=== PATIENT | male | born 1975 | race Caucasian/White ===

== ENCOUNTER 2017-12-05 09:04 | Inpatient (IN) | payer OTHER ==
[2017-12-05] MEDS ORDERED: MORPHINE 4 MG/ML SYR ONE (12:01)
[2017-12-05] MEDS ORDERED: ONDANSETRON 4 MG/2 ML VIAL ONE ×2 (12:02→20:25)
[2017-12-05] MEDS ORDERED: CEFOXITIN/SWI 1gm 1 GM/10 ML SYR ONE (12:02)
[2017-12-05 12:08] LABS: Absolute Lymphocytes (CBC) 1.9 K/uL (0.7-4.9); Absolute Monocytes 0.8 K/uL (0.1-1.3); Absolute Neutrophil 8.5 K/uL (1.8-8.0); Basophils % 0.3 % (0-1.3); Eosinophils % 3.8 % (0-4.4); Hematocrit 39.7 % (39.6-49.0); Lymphocytes % 16.3 % (15.3-44.8); MCH 28.4 pg (27.0-35.0); MCV 82.2 fL (80-100); MPV 8.7 fL (7.6-11.3); Monocytes % 7.1 % (3.3-12.3); RBC Red Blood Cell Count 4.83 M/uL (4.33-5.43)
[2017-12-05 12:17] LABS: Potassium 3.9 mmol/L (3.5-5.1)
--- NOTE | 2017-12-05 12:26 | ER ---
Nurse's Notes [facility] Name: Philippe Baird Age: 42 yrs Sex: Male : 1975 Arrival Date: 12/05/2017 Time: 09:06 Bed 20 Private MD: Diagnosis: Rectal abscess Presentation: 12/05 09:38 Presenting complaint: Patient states: perirectal abscess x 5 days. Pt reports a history ss of multiple abscesses in the same location and has had to have sx in the past. Denies fever. Transition of care: patient was not received from another setting of care. Onset of symptoms was November 30, 2017. Risk Assessment: Do you want to hurt yourself or someone else? Patient reports no desire to harm self or others. Initial Sepsis Screen: Does the patient meet any 2 criteria? No. Patient's initial sepsis screen is negative. Does the patient have a suspected source of infection? Yes: Skin breakdown/wound. Care prior to arrival: None. 09:38 Method Of Arrival: Ambulatory ss 09:38 Acuity: BRADEN 3 ss Historical: - Allergies: 09:42 No Known Allergies; ss - Home Meds: 09:42 lisinopril 20 mg Oral tab 1 tab BID [Active]; fenofibrate 160 mg oral tab 1 tab once ss daily [Active]; Metformin Oral [Active]; nifedipine 30 mg Oral TbER 1 tab twice a day [Active]; - PMHx: 09:42 Hypertension; Diabetes - NIDDM; GERD; ss - PSHx: 09:42 Tonsillectomy; I\T\D; R knee sx; ss - Immunization history:: Adult Immunizations up to date. - Social history:: Smoking status: Patient/guardian denies using tobacco. - Ebola Screening: : Patient denies exposure to infectious person Patient denies travel to an Ebola-affected area in the 21 days before illness onset. Screenin:25 Abuse screen: Denies threats or abuse. Denies injuries from another. Nutritional sv screening: No deficits noted. Tuberculosis screening: No symptoms or risk factors identified. Fall Risk None identified. Assessment: 11:25 General: Appears in no apparent distress. uncomfortable, obese, well developed, sv Behavior is calm, cooperative, appropriate for age. Pain: Complains of pain in buttocks and perineum Pain currently is 10 out of 10 on a pain scale. Quality of pain is described as pressure, tender, Pain began 2-3 days ago. Is continuous, Aggravated by sitting. Neuro: Level of Consciousness is awake, alert, obeys commands, Oriented to person, place, time, situation, Moves all extremities. Full function Gait is steady. Respiratory: Respiratory effort is even, unlabored, Respiratory pattern is regular, symmetrical. Derm: Skin is pink, warm \T\ dry. Abscess located on perineum and buttocks is red, is raised, started draining once pt turned over to the side for rectal examination. Musculoskeletal: Range of motion: intact in all extremities. 13:18 Reassessment: Patient appears in no apparent distress at this time. No changes from sv previously documented assessment. Patient and/or family updated on plan of care and expected duration. Pain level reassessed. Patient is alert, oriented x 3, equal unlabored respirations, skin warm/dry/pink. 13:30 Reassessment: Awaiting admission orders. sv 14:25 Reassessment: Awaiting admission orders. sv 14:40 Reassessment: Patient appears in no apparent distress at this time. No changes from sv previously documented assessment. Patient and/or family updated on plan of care and expected duration. Pain level reassessed. Patient is alert, oriented x 3, equal unlabored respirations, skin warm/dry/pink. Dr Quintanilla at the bedside. 15:22 Reassessment: Patient appears in no apparent distress at this time. No changes from sv previously documented assessment. Patient and/or family updated on plan of care and expected duration. Pain level reassessed. Patient is alert, oriented x 3, equal unlabored respirations, skin warm/dry/pink. Awaiting admission orders. Vital Signs: 09:42 BP 139 / 87; Pulse 83; Resp 16; Temp 97.8(TE); Pulse Ox 98% on R/A; Weight 135.17 kg; ss Height 6 ft. 1 in. (185.42 cm); Pain 8/10; 11:56 BP 139 / 74; Pulse 73; Resp 20; Pulse Ox 95% ; sv 13:45 BP 141 / 86; Pulse 73; Resp 18; Pulse Ox 99% ; sv 14:30 BP 134 / 70; Pulse 71; Resp 18; Pulse Ox 98% ; sv 15:24 BP 141 / 85; Pulse 69; Resp 18; Pulse Ox 98% ; sv 09:42 Body Mass Index 39.32 (135.17 kg, 185.42 cm) ED Course: 09:06 Patient arrived in ED. as 09:39 Triage completed. ss 09:42 Arm band placed on right wrist. ss 10:56 Hortencia Shepherd, BALBINA is Primary Nurse. sv 10:57 Terry Pedersen MD is Attending Physician. gs 11:25 Patient has correct armband on for positive identification. Placed in gown. Bed in low sv position. 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 sv 12:00 Initial lab(s) drawn, by me, sent to lab. First set of blood cultures drawn by me. sv Inserted saline lock: 20 gauge in left antecubital area, using aseptic technique. Blood collected. Flushed left antecubital with 5 ml normal saline. 12:15 Second set of blood cultures drawn by me. sv 12:24 Honorio De La Garza MD is Hospitalizing Provider. gs 13:51 CT Abd/Pelvis - W/Contrast Sent. sv 15:50 Repeat lab(s) drawn. by me, sent to lab. sv 16:07 Patient admitted, IV remains in place. intact. sv Administered Medications: 12:00 Drug: Zofran 4 mg Route: IVP; Site: left antecubital; sv 12:27 Follow up: Response: No adverse reaction sv 12:02 Drug: morphine 4 mg Route: IVP; Site: left antecubital; sv 12:31 Follow up: Response: No adverse reaction sv 12:04 Drug: cefOXitin 1 grams Route: IVPB; Infused Over: 30 mins; Site: left antecubital; sv 12:09 Follow up: Response: No adverse reaction; IV Status: Completed infusion; IV Intake: sv 10ml ; given IVP per pharmacy instructions 13:18 Drug: NS 0.9% 1000 ml Route: IV; Rate: 1 bolus; Site: left antecubital; sv 15:30 Follow up: Response: No adverse reaction; IV Status: Completed infusion; IV Intake: sv 1000ml 13:18 Drug: NS 0.9% 1000 ml Route: IV; Rate: 1 bolus; Site: left antecubital; sv 15:30 Follow up: Response: No adverse reaction; IV Status: Completed infusion; IV Intake: sv 1000ml Intake: 12:09 IV: 10ml; Total: 10ml. sv 15:30 IV: 1000ml; Total: 1010ml. sv 15:30 IV: 1000ml; Total: 2010ml. sv Output: 12:20 Urine: 500ml (Voided); Total: 500ml. sv 14:45 Urine: 400ml (Voided); Total: 900ml. sv Outcome: 12:25 Decision to Hospitalize by Provider. gs 15:50 Admitted to Med/surg accompanied by tech, via stretcher, room 209, with chart, Report sv called to Vasyl MORTENSEN 15:50 Condition: stable 15:50 Instructed on the need for admit. 16:08 Patient left the ED. sv Signatures: Hortencia Shepherd RN Emily Maloney Shelby, RN RN Terry Pedersen MD MD Corrections: (The following items were deleted from the chart) 15:24 14:40 Reassessment: Dr Quintanilla at the bedside. sv sv
--- NOTE | 2017-12-05 12:26 | EDPHYS ---
Physician Documentation [facility] Name: Philippe Baird Age: 42 yrs Sex: Male : 1975 Arrival Date: 12/05/2017 Time: 09:06 Bed 20 Private MD: ED Physician Terry Pedersen HPI: 12/05 12:20 This 42 yrs old Male presents to ER via Ambulatory with complaints of Abscess.gs 12:20 The patient presents with an abscess of the buttocks. Onset: The symptoms/episode gs began/occurred 2 day(s) ago, and became worse and became persistent. Associated signs and symptoms: Pertinent negatives: fever. Modifying factors: the symptoms are aggravated by touching. Severity of symptoms: At their worst the symptoms were severe, in the emergency department the symptoms are unchanged. The patient has experienced similar episodes in the past, a few times. Historical: - Allergies: 09:42 No Known Allergies; ss - Home Meds: :42 lisinopril 20 mg Oral tab 1 tab BID [Active]; fenofibrate 160 mg oral tab 1 tab once ss daily [Active]; Metformin Oral [Active]; nifedipine 30 mg Oral TbER 1 tab twice a day [Active]; - PMHx: 09:42 Hypertension; Diabetes - NIDDM; GERD; ss - PSHx: 09:42 Tonsillectomy; I\T\D; R knee sx; ss - Immunization history:: Adult Immunizations up to date. - Social history:: Smoking status: Patient/guardian denies using tobacco. - Ebola Screening: : Patient denies exposure to infectious person Patient denies travel to an Ebola-affected area in the 21 days before illness onset. ROS: 12:20 All other systems are negative. gs Exam: 12:22 Head/Face: Normocephalic, atraumatic. Eyes: Pupils equal round and reactive to light, gs extra-ocular motions intact. Lids and lashes normal. Conjunctiva and sclera are non-icteric and not injected. Cornea within normal limits. Periorbital areas with no swelling, redness, or edema. ENT: Nares patent. No nasal discharge, no septal abnormalities noted. Tympanic membranes are normal and external auditory canals are clear. Oropharynx with no redness, swelling, or masses, exudates, or evidence of obstruction, uvula midline. Mucous membranes moist. Neck: Trachea midline, no thyromegaly or masses palpated, and no cervical lymphadenopathy. Supple, full range of motion without nuchal rigidity, or vertebral point tenderness. No Meningismus. Chest/axilla: Normal chest wall appearance and motion. Nontender with no deformity. No lesions are appreciated. Cardiovascular: Regular rate and rhythm with a normal S1 and S2. No gallops, murmurs, or rubs. Normal PMI, no JVD. No pulse deficits. Respiratory: Lungs have equal breath sounds bilaterally, clear to auscultation and percussion. No rales, rhonchi or wheezes noted. No increased work of breathing, no retractions or nasal flaring. Skin: Warm, dry with normal turgor. Normal color with no rashes, no lesions, and no evidence of cellulitis. MS/ Extremity: Pulses equal, no cyanosis. Neurovascular intact. Full, normal range of motion. Neuro: Awake and alert, GCS 15, oriented to person, place, time, and situation. Cranial nerves II-XII grossly intact. Motor strength 5/5 in all extremities. Sensory grossly intact. Cerebellar exam normal. Normal gait. 12:22 Constitutional: The patient appears alert, awake, uncomfortable. 12:22 Abdomen/GI: Palpation: abdomen is soft and non-tender, in all quadrants, Rectal exam: swelling, that is moderate, tenderness, that is moderate, perirectal abscess draining. 12:22 Abdomen/GI: Rectal exam: left buttock. gs Vital Signs: 09:42 BP 139 / 87; Pulse 83; Resp 16; Temp 97.8(TE); Pulse Ox 98% on R/A; Weight 135.17 kg; ss Height 6 ft. 1 in. (185.42 cm); Pain 8/10; 11:56 BP 139 / 74; Pulse 73; Resp 20; Pulse Ox 95% ; sv 13:45 BP 141 / 86; Pulse 73; Resp 18; Pulse Ox 99% ; sv 14:30 BP 134 / 70; Pulse 71; Resp 18; Pulse Ox 98% ; sv 15:24 BP 141 / 85; Pulse 69; Resp 18; Pulse Ox 98% ; sv 09:42 Body Mass Index 39.32 (135.17 kg, 185.42 cm) MDM: 11:31 Patient medically screened. gs 12:22 Differential diagnosis: abscess, cellulitis, fistula, crohns. Data reviewed: vital gs signs, nurses notes, lab test result(s), radiologic studies. Response to treatment: the patient's symptoms have mildly improved after treatment, and as a result, I will admit patient. Physician consultation: Luis M Quintanilla MD and will see patient in inpatient room. 12/05 11:31 Order name: CBC with Diff; Complete Time: 12:26 gs 12/05 11:31 Order name: Basic Metabolic Panel; Complete Time: 12:26 gs 12/05 11:31 Order name: Blood Culture* gs 12/05 11:31 Order name: CT Abd/Pelvis - W/Contrast gs 12/05 11:53 Order name: Lactate; Complete Time: 12:26 sv 12/05 13:20 Order name: CT EDMS 12/05 12:36 Order name: CONS Physician Consult EDMS Administered Medications: 12:00 Drug: Zofran 4 mg Route: IVP; Site: left antecubital; sv 12:27 Follow up: Response: No adverse reaction sv 12:02 Drug: morphine 4 mg Route: IVP; Site: left antecubital; sv 12:31 Follow up: Response: No adverse reaction sv 12:04 Drug: cefOXitin 1 grams Route: IVPB; Infused Over: 30 mins; Site: left antecubital; sv 12:09 Follow up: Response: No adverse reaction; IV Status: Completed infusion; IV Intake: sv 10ml ; given IVP per pharmacy instructions 13:18 Drug: NS 0.9% 1000 ml Route: IV; Rate: 1 bolus; Site: left antecubital; sv 15:30 Follow up: Response: No adverse reaction; IV Status: Completed infusion; IV Intake: sv 1000ml 13:18 Drug: NS 0.9% 1000 ml Route: IV; Rate: 1 bolus; Site: left antecubital; sv 15:30 Follow up: Response: No adverse reaction; IV Status: Completed infusion; IV Intake: sv 1000ml Disposition: 12/05/17 12:25 Hospitalization ordered by Honorio De La Garza for Inpatient Admission. Preliminary diagnosis is Rectal abscess. - Bed requested for Telemetry/MedSurg (Inpatient). - Status is Inpatient Admission. sv - Condition is Stable. - Problem is new. - Symptoms have improved. UTI on Admission? No Critical care time excluding procedures: 12:22 Critical care time: Bedside Care: 10 minutes, Consultation: 10 minutes, Family gs Intervention: 10 minutes. Total time: 30 minutes Signatures: Dispatcher [employer] Hortencia Mims, RN Angela Morales RN Shira Cohen RN RN ss Starr, Gregory, MD MD gs Corrections: (The following items were deleted from the chart) 15:30 12:25 Hospitalization Ordered by Honorio De La Garza MD for Inpatient Admission. Preliminary dw diagnosis is Rectal abscess. Bed requested for Telemetry/MedSurg (Inpatient). Status is Inpatient Admission. Condition is Stable. Problem is new. Symptoms have improved. UTI on Admission? No. gs 16:08 15:30 12/05/2017 12:25 Hospitalization Ordered by Honorio De La Garza MD for Inpatient sv Admission. Preliminary diagnosis is Rectal abscess. Bed requested for Telemetry/MedSurg (Inpatient). Status is Inpatient Admission. Condition is Stable. Problem is new. Symptoms have improved. UTI on Admission? No. dw
[2017-12-05] MEDS ORDERED: NA CHLORIDE 0.9% 2,000 ML ONE (12:36)
--- NOTE | 2017-12-05 13:20 | RAD REPORT ---
EXAM DESCRIPTION: CTAbdomen Pelvis W Contrast - 12/05/2017 12:54 pm CLINICAL HISTORY: Abdominal pain. perirectal abscess COMPARISON: CT ABD PELVIS W CONTRAST dated 09/16/2014 TECHNIQUE: Biphasic CT imaging of the abdomen and pelvis was performed with 100 ml non-ionic IV cont rast. All CT scans are performed using dose optimization technique as appropriate and may include automated exposure control or mA/KV adjustment according to patient size. FINDINGS: The lung bases are clear. Mild diffuse fatty liver is seen. The spleen, pancreas, adrenal glands and kidneys are within normal limits. No bowel obstruction, free air, free fluid or abscess. Sigmoid diverticulosis coli is present without diverticulitis. The appendix is normal. No evidence of significant lymphadenopathy. No suspicious bony findings. Mild perirectal inflammatory changes are present without abscess. IMPRESSION: Mild perirectal inflammatory changes without abscess. Sigmoid diverticulosis coli without diverticulitis. Fatty liver.
[2017-12-05] MEDS ORDERED: ONDANSETRON 4 MG/2 ML VIAL IV PRN (15:11)
[2017-12-05] MEDS ORDERED: ACETAMINOPHEN 500 MG TAB PO PRN (15:11)
--- NOTE | 2017-12-05 15:23 | P.HP ---
Certification for Inpatient Patient admitted to: Inpatient With expected LOS: >2 Midnights Practitioner: I am a practitioner with admitting privileges, knowledge of patient current condition, hospital course, and medical plan of care. Services: Services provided to patient in accordance with Admission requirements found in Title 42 Section 412.3 of the Code of Federal Regulations Patient History Date of Service: 12/05/17 Reason for admission: Rectal abscess History of Present Illness: 42 year old male with a hx of DM2, HTN and GERD presented to the ED with complaints of rectal pain. Patient states that this pain started 2 days ago and has been progressively worsening. It is worse when sitting and at times, patient is unable to sit. He he denies any fevers, chills, nausea, vomiting or any other symptoms associated with the abscess except for pain. He states that he had similar symptoms about a year ago where it was lanced by a physician. Since then he has had multiple recurrences of this abscess for which he has randomly taken antibiotics that he has at home. He is not sure of the names of the antibiotics but the last time he has taken the antibiotics was over 2 months ago. States he he does not follow up with primary care physician for his chronic diseases but he does see a cutting machine tender helper at [facility] who prescribes him his blood pressure medications and his diabetes medications. On examination in the ER, patient was alert and oriented x3 and not in any distress after his pain medication. Dr. Meneses, General Surgery was consulted for I&D and patient was admitted for further care. Allergies No Known Drug Allergies Allergy (Unverified 09/16/14 05:25) Unknown Home medications list reviewed: Yes - Past Medical/Surgical History Diabetic: Yes -: Hypertension -: GERD -: Knee surgery -: Perirectal abscess -: Tonsillectomy - Family History Father -: Heart disease, Hypertension, Cancer Mother -: Hypertension, Diabetes, Cancer (GI) - Social History Smoking Status: Never smoker Review of Systems General: Unremarkable Eyes: Unremarkable ENT: Unremarkable Respiratory: Unremarkable Cardiovascular: Unremarkable Gastrointestinal: Unremarkable Genitourinary: Unremarkable Musculoskeletal: Unremarkable Integumentary: As per HPI Neurological: Unremarkable Lymphatics: Unremarkable Physical Examination - Vital Signs Temperature: 97.8 F (ER) Blood Pressure: 139/74 (ER) Pulse: 73 (ER) Respirations: 16 (ER) Pulse Ox (%): 95 (ER, on room air) - Physical Exam General: Alert, In no apparent distress, Oriented x3 HEENT: Atraumatic Neck: Supple, 2+ carotid pulse no bruit Respiratory: Clear to auscultation bilaterally, Normal air movement Cardiovascular: Normal pulses, Regular rate/rhythm, Normal S1 S2 Capillary refill: <2 Seconds Gastrointestinal: Normal bowel sounds, Soft and benign, No tenderness, No rebound, No guarding Musculoskeletal: No clubbing, No swelling Integumentary: Other (Rectal abscess, moderate amount of drainage; tender area, warm to touch. located on left buttock. ) Neurological: Normal speech - Studies Laboratory Data (last 24 hrs) 12/05/17 11:35: Sodium 140, Potassium 3.9, BUN 19 H, Creatinine 1.20, Glucose 161 H 12/05/17 11:35: WBC 11.7 H, Hgb 13.7, Hct 39.7, Plt Count 292 Assessment and Plan - Problems (Diagnosis) (1) Perirectal abscess Onset Date: ~12/02/17 Current Visit: Yes Status: Acute Plan: Dr. Meneses General Surgery consulted. Patient did go to the OR today for I and D/washout of the abscess. I will continue the IV antibiotics until until the OR. Post I and D, prior to being discharged, patient will likely be switched to oral antibiotics (Levaquin and clindamycin) for a 5 day course. Patient will also follow up with Dr. Meneses after discharge for wound care. Continue pain control (2) Diabetes mellitus type 2 in obese Current Visit: No Status: Chronic Plan: Accu-Cheks and sliding scale insulin. Discussed with patient and he will need better management with primary care physician after discharge (3) Hypertension Current Visit: No Status: Chronic Plan: Stable. Resume home medications. Qualifiers: Hypertension type: unspecified Qualified Code(s): I10 - Essential (primary ) hypertension (4) GERD (gastroesophageal reflux disease) Current Visit: No Status: Chronic Plan: Stable. Resume home medications Qualifiers: Esophagitis presence: esophagitis presence not specified Qualified Code(s) : K21.9 - Gastro-esophageal reflux disease without esophagitis (5) Obesity Current Visit: Yes Status: Acute Qualifiers: Obesity classification: adult class 2 (BMI 35 - 39.9) Serious obesity comorbidity presence: without serious comorbidity Body mass index: BMI 39.0- 39.9 Discharge Plan: Home Plan to discharge in: 48 Hours - Advance Directives Does patient have a Living Will: No Does patient have a Durable POA for Healthcare: No Time Spent Managing Pts Care (In Minutes): 45
[2017-12-05 17:42] LABS: Urine Appearance CLEAR; Urine Bilirubin NEGATIVE (NEG); Urine Blood NEGATIVE (NEG); Urine Color YELLOW; Urine Glucose NEGATIVE (NEG); Urine Protein NEGATIVE (NEG); Urine Specific Gravity 1.015 (1.005-1.030); Urine Urobilinogen 0.2 mg/dL (0.2-1.0)
[2017-12-05 17:48] LABS: Urine Microscopic Reflex NO UMIC
[2017-12-05] MEDS ORDERED: MORPHINE 2 MG/ML SYR IV PRN (17:49)
[2017-12-05] MEDS ORDERED: NA CHLORIDE 0.9% 1,000 ML ONE (18:05)
[2017-12-05] MEDS ORDERED: CLINDAMYCIN INJ 300 MG in NA CHLORIDE 0.9% 50 ML IV ONE (19:00)
[2017-12-05] MEDS ORDERED: Levofloxacin500mg IV 500 MG/100 ML BAG IV ONE ×2 (19:00→19:13)
[2017-12-05] MEDS ORDERED: FENTANYL CITR 100 MCG/2 ML ONE (19:15)
[2017-12-05] MEDS ORDERED: PROPOFOL 200 MG/20 ML VIAL IV ONE (19:15)
[2017-12-05] MEDS ORDERED: BUPIVACA 0.25%/EPI 0.0005% MDV 50 ML VIAL ONE (19:20)
--- NOTE | 2017-12-05 19:34 | CON ---
Date of Consultation: 12/05/2017 Brief History Of Present Illness: The patient is a 42-year-old male who has a history of diabetes an d hypertension, who presents with approximately 1-week history of perirectal pain and tenderness. He has had multiple episodes before in the past, however, they have been treated with antibiotics predo minantly. He did have 1 episode of incision and drainage of this area in the past without packing an d it healed temporarily at that time, but he has been dealing with this off and on, approximately 3 e pisodes in the last 6 months. It got significantly worse and more painful on this particular occasio n, it is on his left buttock perianal area. There has been drainage from this area spontaneously bef ore he had a CT scan here today, but he continues to drain a significant amount of purulent fluid. Past Medical History: Significant for hypertension, diabetes. Past Surgical History: He had knee replacement and incision and drainage of perirectal abscess, tons illectomy. Allergies: NO KNOWN DRUG ALLERGIES. Medications: Metformin and an antihypertensive, he cannot remember the name. Social History: He denies smoking, alcohol, or recreational drug use. Review of Systems: A 10-point review of systems, other than HPI, denies. Physical Examination: General: At the time of my examination, he is awake, alert, and oriented. Psychiatric: He is appropriate and conversive. HEENT: He is normocephalic. Sclerae icteric. Mucous membranes are moist. Oropharynx clear. Neck: Supple. No JVD. Chest: Normal expansion excursion. Cardiovascular: Regular rate and rhythm. Pulmonary: Clear to auscultation bilaterally. Abdomen: Soft, nontender, nondistended. Extremities: No clubbing, cyanosis, edema. Pelvis: Focused examination of the rectal area shows an area of fluctuance on the left perirectal ar ea and significant cellulitis and necrotic tissue in the perirectal area on the left gluteal area, no t involving the anus at this time. He has drainage of purulent fluid from here and significant tende rness to the area. The erythematous area extends approximately an area of 10 cm circumferentially. Laboratory Data: His white blood count of 11.7, hemoglobin is 13.7 over hematocrit of 39.7, platelet count is 292, neutrophils are 72.5. Sodium 140, potassium 3.9, chloride 107, carbon dioxide 25, BUN 19, creatinine 1.2; glucose is 161. Lactic acid 2.3. He had a CT scan performed of the abdomen and pelvis, officially read as mild perirectal inflammatory changes without abscess, sigmoid diverticuli tis coli without diverticulitis, fatty liver. Assessment And Plan: This is a 42-year-old male who presents with signs and symptoms of an incomplet tanmay drained abscess of the left perirectal tissue in a gluteal position. 1.IV fluids. 2.Antibiotic coverage. 3.I recommend fully opening this area as it has a small punctate opening and the cellulitic tissue a nd induration this area, I recommend opening it and cleansing this area in its entirety and packing t he wound. I have explained risks, benefits, and alternatives. See the above stated plan. The patie nt agrees to proceed as indicated. Thank you for this interesting consult. HARJIT Voice ID: [id number] Report ID: [id number]
[2017-12-05] MEDS ORDERED: DEXAMETHASONE 10 MG/ML VIAL ONE (19:38)
[2017-12-05] MEDS ORDERED: KETOROLAC 30 MG/ML INJ ONE (19:38)
[2017-12-05] MEDS ORDERED: ONDANSETRON HCL 40 MG/20 ML VIAL ONE (19:38)
[2017-12-05] MEDS ORDERED: MEPERIDINE HCL 25 MG/0.5 ML ONE (19:49)
--- NOTE | 2017-12-05 19:55 | P.OP ---
Preoperative diagnosis: Perianal Abscess Postoperative diagnosis: Perianal Abscess Primary procedure: Incision and drainage of Perianal Abscess Anesthesia: GETA + Local Estimated blood loss: <20cc Specimen: Cultures Findings: ~6cm multiloculated abscess - incompletely drained Complications: None Transferred to: Recovery Room Condition: Good
[2017-12-05] MEDS ORDERED: HYDROCODONE/APAP 5/325 MG TAB PO PRN (19:59)
[2017-12-05] MEDS ORDERED: MEPERIDINE HCL 50 MG/ML AMP ONE (20:20)
--- NOTE | 2017-12-06 05:55 | OP ---
Date of Procedure: 12/05/2017 Surgeon: Luis M Quintanilla MD, Preoperative Diagnosis: Perianal abscess. Postoperative Diagnosis: Perianal abscess. Procedure Performed: Incision and drainage of perianal abscess. Anesthesia: General endotracheal plus local with 0.25% Marcaine with epinephrine. Estimated Blood Loss: Less than 20 cc. Specimen: Cultures were sent for both aerobic and anaerobic speciation. Findings: Approximately a 6 cm multiloculated abscess incompletely drained at this time and is now c ompletely drained. Complications: None. Disposition: Transferred to recovery room in good condition. Procedure In Detail: After informed consent was obtained, the patient was brought to the operating r oom, prepped and draped in usual sterile fashion. After adequate anesthesia was achieved, the area o f the right posterior buttock was appropriately anesthetized with 0.25% Marcaine with epinephrine and an area of fluctuance was appreciated to the right of the perineum, approximately 3 cm from the jose l neum. This was opened in its entirety for approximately 6 cm and a multiloculated, incompletely drai jhonny abscess was appreciated in this area. The cultures were sent at this time. The area was complet tanmay unroofed and marsupialized. The area was copiously irrigated multiple times. Hemostasis was ach ieved with electrocautery. All necrotic tissues were removed, and the wound was packed with half-inc h iodoform packing and a sterile dressing was placed over top. Patient tolerated the procedure well without evidence of complication and transferred to the PACU in good condition. All counts were correct at the end of the case. SELVIN/RICARDO Voice ID: [id number] Report ID: [id number]
[2017-12-06 06:00] LABS: Absolute Monocytes 0.2 K/uL (0.1-1.3); Absolute Neutrophil 6.5 K/uL (1.8-8.0); Basophils % 0.1 % (0-1.3); Eosinophils % 0.1 % (0-4.4); Hematocrit 38.3 % (39.6-49.0); Lymphocytes % 13.1 % (15.3-44.8); MCH 28.7 pg (27.0-35.0); MCV 82.9 fL (80-100); MPV 8.6 fL (7.6-11.3); Monocytes % 2.2 % (3.3-12.3); RBC Red Blood Cell Count 4.62 M/uL (4.33-5.43)
[2017-12-06 06:16] LABS: Albumin 3.2 g/dL (3.4-5.0); Bilirubin Total 0.3 mg/dL (0.2-1.0); Potassium 4.2 mmol/L (3.5-5.1)
--- NOTE | 2017-12-06 18:24 | P.SSS ---
Patient History Date of Service: 12/06/17 Reason for admission: Rectal abscess History of Present Illness: 42 year old male with a hx of DM2, HTN and GERD presented to the ED with complaints of rectal pain. Patient states that this pain started 2 days ago and has been progressively worsening. It is worse when sitting and at times, patient is unable to sit. He he denies any fevers, chills, nausea, vomiting or any other symptoms associated with the abscess except for pain. He states that he had similar symptoms about a year ago where it was lanced by a physician. Since then he has had multiple recurrences of this abscess for which he has randomly taken antibiotics that he has at home. He is not sure of the names of the antibiotics but the last time he has taken the antibiotics was over 2 months ago. States he he does not follow up with primary care physician for his chronic diseases but he does see a scratcher tender at [facility] who prescribes him his blood pressure medications and his diabetes medications. On examination in the ER, patient was alert and oriented x3 and not in any distress after his pain medication. Dr. Meneses, General Surgery was consulted for I&D and patient was admitted for further care. Allergies No Known Drug Allergies Allergy (Verified 12/05/17 21:03) Unknown Home Medications: Esomeprazole Mag Trihydrate [Nexium] 40 mg PO DAILY 12/05/17 Fenofibrate Nanocrystallized [Triglide] 160 mg PO DAILY 12/05/17 Fenofibrate,Micronized [Fenofibrate] 43 mg PO DAILY 12/05/17 Lisinopril [Prinivil*] 20 mg PO BID 12/05/17 Metformin HCl [Glucophage*] 250 mg PO BIDWM 12/05/17 Nifedipine Xl [Procardia Xl*] 30 mg PO BID 12/05/17 Clindamycin HCl [Cleocin HCl] 300 mg PO Q6HR #20 capsule 12/06/17 Tramadol HCl [Ultram] 50 mg PO Q6HP PRN #12 tablet 12/06/17 levoFLOXacin [Levaquin] 750 mg PO DAILY #5 tab 12/06/17 - Past Medical/Surgical History Has patient received pneumonia vaccine in the past: No Diabetic: Yes -: Hypertension -: GERD -: dm -: high triglycerides -: Knee surgery -: Perirectal abscess -: Tonsillectomy - Family History Father -: Heart disease, Hypertension, Cancer Mother -: Hypertension, Diabetes, Cancer - Social History Smoking Status: Never smoker Alcohol use: No CD- Drugs: No Caffeine use: Yes Place of Residence: Home Review of Systems 10-point ROS is otherwise unremarkable Physical Examination - Vital Signs Temperature: 97.7 F Blood Pressure: 155/76 Pulse: 75 Respirations: 18 Pulse Ox (%): 96 - Physical Exam General: Alert, In no apparent distress HEENT: Atraumatic, PERRLA, Mucous membr. moist/pink, EOMI, Sclerae nonicteric Neck: Supple, 2+ carotid pulse no bruit, No LAD, Without JVD or thyroid abnormality Respiratory: Clear to auscultation bilaterally, Normal air movement Cardiovascular: Regular rate/rhythm, Normal S1 S2 Gastrointestinal: Normal bowel sounds, No tenderness Musculoskeletal: No tenderness Integumentary: Other (Perianal abscess, packed. No evidence of infection noted) Neurological: Normal gait, Normal speech, Normal strength at 5/5 x4 extr, Normal tone, Normal affect Lymphatics: No axilla or inguinal lymphadenopathy - Diagnosis (Problem(s)) (1) Perirectal abscess Onset Date: 12/06/17 Current Visit: Yes Status: Resolved Plan: (2) Diabetes mellitus type 2 in obese Onset Date: 12/06/17 Current Visit: Yes Status: Chronic (3) Hypertension Onset Date: 12/06/17 Current Visit: Yes Status: Chronic Qualifiers: Hypertension type: unspecified Qualified Code(s): I10 - Essential (primary ) hypertension (4) GERD (gastroesophageal reflux disease) Onset Date: 12/06/17 Current Visit: Yes Status: Chronic Qualifiers: Esophagitis presence: esophagitis presence not specified Qualified Code(s) : K21.9 - Gastro-esophageal reflux disease without esophagitis (5) Obesity Onset Date: 12/06/17 Current Visit: Yes Status: Acute Qualifiers: Obesity classification: adult class 2 (BMI 35 - 39.9) Serious obesity comorbidity presence: without serious comorbidity Body mass index: BMI 39.0- 39.9 Treatment Summary: Patient came in with perianal abscess. General surgery, Dr. Quintanilla, took patient to OR for I&D. postoperatively, patient was sent home on oral Levaquin and clindamycin for 5 days. Patient will follow up with wound Care Clinic in 1 week. - Disposition Disposition: ROUTINE DISCHARGE Condition: GOOD Patient Discharge Instructions: Please follow instructions for wound care given by here or general surgeon. Please follow up with Dr. gonzalez, General Surgery in 1 week. Please follow up with your primary care physician in 1 week Diet: AHA Activity: Ad livan
== END 2017-12-06 18:54 | disposition home or self-care (01) | DRG 346 ==
LOC: ER 09:04 → ERHOLD 12:28 → 2ND 15:43
PROVIDERS: ADMIT Family Medicine; ATTEND Family Medicine
PROC: 0D9P0ZZ Drainage of Rectum, Open Approach (ICD-10-PCS; principal; 2017-12-05 18:45)
DX: K61.2 Anorectal abscess (principal); I10 Essential (primary) hypertension; K21.9 Gastro-esophageal reflux disease without esophagitis; E11.9 Type 2 diabetes mellitus without complications; E66.9 Obesity, unspecified; E78.1 Pure hyperglyceridemia; Z68.39 Body mass index [BMI] 39.0-39.9, adult
CPT/HCPCS: 36415; 74177; 80048; 80053; 81003; 82962; 83605; 83735; 85025; 87040; 87070; 87075; 87077; 87186; 87205; 96361; 96374; 96375; 99285; J1100; J2175; J2405; J3010; J7030; Q9967